=== PATIENT | male | born 1970 | race African-American/Black ===

== ENCOUNTER 2016-11-22 13:15 | Emergency (ER) | payer OTHER ==
[~2016-11-22 13:15] MED LIST: BACTRIM DS TABL1 TAB PO; KEFLEX PO; NAPROSYN500 MG PO; PERCOCET5/325 PO; PREDNISONE PO
== END 2016-11-22 13:24 | disposition left against medical advice (07) ==
LOC: CED 13:15
DX: Z53.21 Procedure and treatment not carried out due to patient leaving prior to being seen by health care provider (principal)